=== PATIENT | female | born 1960 | race African-American/Black ===

== ENCOUNTER 2019-08-25 09:33 | Inpatient (IN) | payer MEDICARE, MEDICAID ==
[~2019-08-25] VITALS: Ht 152.4 cm; Wt 77.1 kg
[~2019-08-25 09:33] MED LIST: ATOR20TA; CIPR-263; CLOP75TA4 PO; DOCU250C14 PO; ERGO400T3; FERR240T6 PO; METH2.5T; METH8TAB5; OMEP20CA4; ONDA4TAB5 PO; POTA-79 PO; SUCR1TAB; TRAM50TA94 PO; [UNRECOGNIZED DRUG - CODE]
[2019-08-25] MEDS ORDERED: ONDANSETRON HCL 4MG/2ML INJ IV STA (09:57)
[2019-08-25] MEDS ORDERED: MORPHINE SULFATE 4 MG/ML CPJ (NOT FOR IM USE) IV STA (09:57)
[2019-08-25] MEDS ORDERED: SODIUM CHLORIDE 0.9% 1,000 ML IV ONE (09:57)
[2019-08-25 10:29] LABS: BASOPHILS % 1.7 % (0.0-2.0); EOSINOPHILS % 4.6 % (0.0-5.0); HEMATOCRIT. 40.9 % (36.0-48.0); HEMOGLOBIN. 13.6 g/dL (12.0-16.0); LYMPHOCYTES % 39.2 % (20.0-50.0); MEAN CORPUSCULAR VOLUME 90.3 fL (81.0-99.0); MEAN PLATELET VOLUME 8.8 fl (7.4-10.4); MONOCYTES % 11.4 % (2.0-8.0); NEUTROPHILS % 43.1 % (40.0-76.0); PLATELET 217 x1000/uL (130-400); RED BLOOD CELL COUNT 4.54 mill/uL (4.2-5.4); RED CELL DISTRIBUTION WIDTH 14.2 % (11.6-14.6)
[2019-08-25 10:36] LABS: CHLORIDE 107 mEq/L (98-107)
[2019-08-25] MEDS ORDERED: ONDANSETRON HCL 4MG TABLET ONE (13:09)
[2019-08-25] MEDS ORDERED: ONDANSETRON HCL 4MG/2ML INJ IV ONE ×2 (13:15→14:15)
[2019-08-25 15:29] VITALS: BP 136/82
[2019-08-25] MEDS ORDERED: INFLUENZA VIRUS VACCINE(AFLURIA) 0.5ML SYR IM ONE (16:00)
[2019-08-25 20:00] VITALS: BP 142/77
[2019-08-25] MEDS: MORPHINE SULFATE 2 MG/ML CPJ (NOT FOR IM USE) IV PRN (22:25)
[2019-08-25] MEDS: ONDANSETRON HCL 4MG/2ML INJ IV PRN (22:32)
[2019-08-26] VITALS: BP 139/86
[2019-08-26] MEDS: MORPHINE SULFATE 2 MG/ML CPJ (NOT FOR IM USE) IV PRN ×2 (02:29→06:47)
[2019-08-26 04:00] VITALS: BP 157/83
[2019-08-26] MEDS ORDERED: CLONIDINE 0.1MG TABLET PO PRN (06:15)
[2019-08-26] MEDS: SUCRALFATE 1G TABLET PO SCH ×4 (06:47→20:14)
[2019-08-26] MEDS: OMEPRAZOLE 20MG CAPSULE EXTENDED RELEASE PO SCH ×2 (06:47→20:14)
[2019-08-26] MEDS: ONDANSETRON HCL 4MG/2ML INJ IV PRN ×2 (06:47→14:15)
[2019-08-26 08:00] VITALS: BP 168/91
[2019-08-26] MEDS ORDERED: DEXT 5%/0.45% NACL 1000ML 1,000 ML IV SCH (09:00)
[2019-08-26] MEDS: AMLODIPINE 10MG TABLET PO SCH (09:31)
[2019-08-26] MEDS: PREDNISONE 10MG TABLET PO SCH (09:31)
[2019-08-26] MEDS: DOCUSATE SODIUM 100MG CAPSULE PO SCH ×2 (09:31→17:00)
[2019-08-26] MEDS: HYDROMORPHONE HCL/PF 2MG/ML CPJ IV PRN ×5 (09:32→23:58)
[2019-08-26 12:00] VITALS: BP 149/91
[2019-08-26 16:00] VITALS: BP 109/81
[2019-08-26] MEDS: ENOXAPARIN 40MG/0.4ML SYR SUBCUT SCH (18:11)
[2019-08-26 20:00] VITALS: BP 142/87
[2019-08-27] VITALS (9 sets, daily range): BP systolic 106–142; BP diastolic 67–89
[2019-08-27] MEDS: HYDROMORPHONE HCL/PF 2MG/ML CPJ IV PRN ×4 (04:25→20:10)
[2019-08-27] MEDS: SUCRALFATE 1G TABLET PO SCH ×4 (06:34→20:15)
[2019-08-27] MEDS: OMEPRAZOLE 20MG CAPSULE EXTENDED RELEASE PO SCH (06:34)
[2019-08-27] MEDS: DOCUSATE SODIUM 100MG CAPSULE PO SCH (10:09)
[2019-08-27] MEDS: PREDNISONE 10MG TABLET PO SCH (10:09)
[2019-08-27] MEDS: AMLODIPINE 10MG TABLET PO SCH (10:11)
[2019-08-27] MEDS ORDERED: LACTULOSE 20G/30ML UDC PO PRN (11:30)
[2019-08-27] MEDS ORDERED: LACTULOSE 20G/30ML UDC PO NR (11:45)
[2019-08-27] MEDS: DOCUSATE SODIUM 250MG CAPSULE PO SCH (12:46)
[2019-08-27] MEDS: ONDANSETRON HCL 4MG/2ML INJ IV PRN (13:01)
[2019-08-27] MEDS: HYDROCODONE/ACETAMINOPHEN 10/325MG TABLET PO PRN ×2 (16:12→22:38)
[2019-08-27] MEDS: ENOXAPARIN 40MG/0.4ML SYR SUBCUT SCH (18:20)
[2019-08-28] VITALS: BP 122/79
[2019-08-28] MEDS: HYDROMORPHONE HCL/PF 2MG/ML CPJ IV PRN ×6 (00:23→22:25)
[2019-08-28] MEDS: HYDROCODONE/ACETAMINOPHEN 10/325MG TABLET PO PRN ×2 (02:45→07:47)
[2019-08-28 04:00] VITALS: BP 112/69
[2019-08-28] MEDS: SUCRALFATE 1G TABLET PO SCH ×4 (06:24→21:31)
[2019-08-28 08:00] VITALS: BP 127/73
[2019-08-28] MEDS: AMLODIPINE 10MG TABLET PO SCH (08:42)
[2019-08-28] MEDS: PREDNISONE 10MG TABLET PO SCH (08:42)
[2019-08-28] MEDS: DOCUSATE SODIUM 250MG CAPSULE PO SCH (08:42)
[2019-08-28] MEDS: ONDANSETRON HCL 4MG/2ML INJ IV PRN ×4 (09:51→22:38)
[2019-08-28 12:00] VITALS: BP 100/71
[2019-08-28] MEDS: HYDROCODONE/ACETAMINOPHEN 10/325MG TABLET PO SCH ×3 (14:37→20:21)
[2019-08-28 16:00] VITALS: BP 97/71
[2019-08-28] MEDS ORDERED: IBUPROFEN 600MG TABLET PO PRN (17:00)
[2019-08-28 17:33] LABS: BASOPHILS % 0.6 % (0.0-2.0); EOSINOPHILS % 1.7 % (0.0-5.0); HEMATOCRIT. 38.2 % (36.0-48.0); HEMOGLOBIN. 12.4 g/dL (12.0-16.0); LYMPHOCYTES % 8.9 % (20.0-50.0); MEAN CORPUSCULAR HEMOGLOBIN 29.6 pg (28.0-32.0); MEAN PLATELET VOLUME 9.3 fl (7.4-10.4); MONOCYTES % 13.1 % (2.0-8.0); NEUTROPHILS % 75.7 % (40.0-76.0); PLATELET 192 x1000/uL (130-400); RED CELL DISTRIBUTION WIDTH 13.6 % (11.6-14.6)
[2019-08-28 17:48] LABS: CHLORIDE 105 mEq/L (98-107)
[2019-08-28] MEDS: ENOXAPARIN 40MG/0.4ML SYR SUBCUT SCH (17:51)
[2019-08-28 20:00] VITALS: BP 112/72
[2019-08-28] MEDS: OMEPRAZOLE 20MG CAPSULE EXTENDED RELEASE PO SCH (20:21)
[2019-08-29] VITALS (7 sets, daily range): BP systolic 112–135; BP diastolic 72–84
[2019-08-29] MEDS: HYDROCODONE/ACETAMINOPHEN 10/325MG TABLET PO SCH ×5 (00:27→17:01)
[2019-08-29] MEDS: ONDANSETRON HCL 4MG/2ML INJ IV PRN (02:33)
[2019-08-29] MEDS: HYDROMORPHONE HCL/PF 2MG/ML CPJ IV PRN ×2 (02:33→10:48)
[2019-08-29] MEDS: OMEPRAZOLE 20MG CAPSULE EXTENDED RELEASE PO SCH (06:33)
[2019-08-29] MEDS: SUCRALFATE 1G TABLET PO SCH ×3 (06:33→17:00)
[2019-08-29] MEDS: DOCUSATE SODIUM 250MG CAPSULE PO SCH (08:42)
[2019-08-29] MEDS: PREDNISONE 10MG TABLET PO SCH (08:42)
[2019-08-29] MEDS: AMLODIPINE 10MG TABLET PO SCH (08:43)
[2019-08-29] MEDS: ENOXAPARIN 40MG/0.4ML SYR SUBCUT SCH (17:00)
== END 2019-08-29 17:26 | DRG 563 ==
LOC: ER 09:33 → 6EST 13:04 → ENRESERV 14:09
PROVIDERS: ADMIT Internal Medicine; ATTEND Internal Medicine
DX: S82.142A Displaced bicondylar fracture of left tibia, initial encounter for closed fracture (principal); E44.0 Moderate protein-calorie malnutrition; M25.00 Hemarthrosis, unspecified joint; J98.11 Atelectasis; M85.80 Other specified disorders of bone density and structure, unspecified site; I10 Essential (primary) hypertension; M32.9 Systemic lupus erythematosus, unspecified; K44.9 Diaphragmatic hernia without obstruction or gangrene; M16.12 Unilateral primary osteoarthritis, left hip; K29.70 Gastritis, unspecified, without bleeding; M81.0 Age-related osteoporosis without current pathological fracture; W18.39XA Other fall on same level, initial encounter; Z68.33 Body mass index [BMI] 33.0-33.9, adult; Z87.11 Personal history of peptic ulcer disease; Z88.0 Allergy status to penicillin; Z79.899 Other long term (current) drug therapy; Z89.412 Acquired absence of left great toe; Y93.89 Activity, other specified; Y92.89 Other specified places as the place of occurrence of the external cause; Y99.8 Other external cause status
CPT/HCPCS: 36415; 71045; 72170; 73552; 73590; 73700; 80048; 83036; 90686; 93005; 96374; 97162; 97530; 97760; 99285; J1170; J1650; J2270; J2405; J7030; J7512; Q0162

== ENCOUNTER 2019-08-29 17:30 | Inpatient (IN) | payer MEDICARE, MEDICAID ==
[~2019-08-29] VITALS: Ht 152.4 cm; Wt 77.1 kg
[2019-08-29] MEDS ORDERED: CLONIDINE 0.1MG TABLET PO PRN (18:30)
[2019-08-29 18:40] VITALS: BP 102/69
[2019-08-29 18:54] VITALS: BP 102/69
[2019-08-29 20:00] VITALS: BP 92/53
[2019-08-29] MEDS: HYDROCODONE/ACETAMINOPHEN 10/325MG TABLET PO SCH ×2 (20:00→23:51)
[2019-08-29] MEDS: HYDROMORPHONE HCL/PF 2MG/ML CPJ IV PRN (21:47)
[2019-08-29] MEDS: OMEPRAZOLE 20MG CAPSULE EXTENDED RELEASE PO SCH (21:48)
[2019-08-29] MEDS: LACTULOSE 20G/30ML UDC PO PRN (21:48)
[2019-08-29] MEDS: SUCRALFATE 1G TABLET PO SCH (21:48)
[2019-08-30] MEDS: HYDROCODONE/ACETAMINOPHEN 10/325MG TABLET PO SCH ×6 (04:00→23:47)
[2019-08-30] MEDS: ONDANSETRON HCL 4MG/2ML INJ IV PRN ×5 (05:47→23:50)
[2019-08-30] MEDS: HYDROMORPHONE HCL/PF 2MG/ML CPJ IV PRN (05:48)
[2019-08-30] MEDS: SUCRALFATE 1G TABLET PO SCH ×4 (05:48→20:38)
[2019-08-30 07:30] LABS: BASOPHILS % 0.9 % (0.0-2.0); EOSINOPHILS % 2.1 % (0.0-5.0); HEMATOCRIT. 36.4 % (36.0-48.0); HEMOGLOBIN. 12.1 g/dL (12.0-16.0); LYMPHOCYTES % 22.9 % (20.0-50.0); MEAN CORPUSCULAR HEMOGLOBIN 29.8 pg (28.0-32.0); MEAN CORPUSCULAR VOLUME 89.3 fL (81.0-99.0); MEAN PLATELET VOLUME 9.6 fl (7.4-10.4); MONOCYTES % 14.1 % (2.0-8.0); PLATELET 226 x1000/uL (130-400); RED BLOOD CELL COUNT 4.07 mill/uL (4.2-5.4); RED CELL DISTRIBUTION WIDTH 13.2 % (11.6-14.6)
[2019-08-30 07:49] LABS: CHLORIDE 105 mEq/L (98-107)
[2019-08-30 08:12] VITALS: BP 134/84
[2019-08-30] MEDS: OMEPRAZOLE 20MG CAPSULE EXTENDED RELEASE PO SCH ×2 (08:19→20:40)
[2019-08-30] MEDS: DOCUSATE SODIUM 250MG CAPSULE PO SCH (08:20)
[2019-08-30] MEDS: ENOXAPARIN 40MG/0.4ML SYR SUBCUT SCH (08:20)
[2019-08-30] MEDS: PREDNISONE 10MG TABLET PO SCH (08:21)
[2019-08-30] MEDS: AMLODIPINE 10MG TABLET PO SCH ×2 (08:21→08:22)
[2019-08-30] MEDS ORDERED: BISACODYL 10MG SUPP PR ONE (09:30)
[2019-08-30] MEDS ORDERED: BISACODYL 10MG SUPP PR PRN (09:30)
[2019-08-30] MEDS: LIDOCAINE 5% PATCH TOP SCH (11:50)
[2019-08-30] MEDS: LACTULOSE 20G/30ML UDC PO SCH ×3 (13:04→20:40)
[2019-08-30] MEDS: OXYCODONE HCL 5MG TABLET PO SCH ×2 (13:05→17:38)
[2019-08-30 19:58] LABS: CLARITY URINE CLEAR (CLEAR); COLOR URINE YELLOW (YELLOW); KETONES URINE NEGATIVE (NEGATIVE); LEUKOCYTE ESTERASE URINE NEGATIVE (NEGATIVE); NITRITE URINE NEGATIVE (NEGATIVE); OCCULT BLOOD URINE NEGATIVE (NEGATIVE); PROTEIN URINE 1+ (NEGATIVE); SPECIFIC GRAVITY URINE 1.022 (1.005-1.030)
[2019-08-30 20:00] VITALS: BP 123/89
[2019-08-31] MEDS: HYDROCODONE/ACETAMINOPHEN 10/325MG TABLET PO SCH ×5 (04:00→21:08)
[2019-08-31] MEDS: ONDANSETRON HCL 4MG/2ML INJ IV PRN ×3 (04:02→14:44)
[2019-08-31] MEDS: HYDROMORPHONE HCL/PF 2MG/ML CPJ IV PRN (04:04)
[2019-08-31] MEDS: SUCRALFATE 1G TABLET PO SCH ×4 (05:46→21:08)
[2019-08-31 06:55] LABS: BASOPHILS % 0.8 % (0.0-2.0); EOSINOPHILS % 1.9 % (0.0-5.0); HEMATOCRIT. 36.1 % (36.0-48.0); HEMOGLOBIN. 12.3 g/dL (12.0-16.0); LYMPHOCYTES % 18.4 % (20.0-50.0); MEAN CORPUSCULAR HEMOGLOBIN 30.5 pg (28.0-32.0); MEAN CORPUSCULAR VOLUME 89.5 fL (81.0-99.0); MEAN PLATELET VOLUME 9.4 fl (7.4-10.4); MONOCYTES % 9.9 % (2.0-8.0); PLATELET 240 x1000/uL (130-400); RED BLOOD CELL COUNT 4.03 mill/uL (4.2-5.4); RED CELL DISTRIBUTION WIDTH 13.1 % (11.6-14.6)
[2019-08-31 07:18] LABS: CHLORIDE 106 mEq/L (98-107)
[2019-08-31 07:24] LABS: PHOSPHORUS 3.3 mg/dL (2.5-4.9)
[2019-08-31 07:26] LABS: TOTAL IRON BINDING CAPACITY 203 ug/dL (250-450)
[2019-08-31 07:56] VITALS: BP 123/72
[2019-08-31] MEDS: OMEPRAZOLE 20MG CAPSULE EXTENDED RELEASE PO SCH ×2 (08:52→21:08)
[2019-08-31] MEDS: PREDNISONE 10MG TABLET PO SCH (08:53)
[2019-08-31] MEDS: DOCUSATE SODIUM 250MG CAPSULE PO SCH (08:53)
[2019-08-31] MEDS: ENOXAPARIN 40MG/0.4ML SYR SUBCUT SCH (08:54)
[2019-08-31] MEDS: AMLODIPINE 10MG TABLET PO SCH (08:54)
[2019-08-31] MEDS: LIDOCAINE 5% PATCH TOP SCH (08:54)
[2019-08-31 09:38] LABS: FOLIC ACID (FOLATE) SERUM 11.2 ng/mL (>5.38)
[2019-08-31] MEDS: OXYCODONE HCL 5MG TABLET PO SCH ×3 (09:49→17:00)
[2019-08-31] MEDS ORDERED: POTASSIUM CHLORIDE 20MEQ TABLET SR PO NR (11:15)
[2019-08-31] MEDS: CYANOCOBALAMIN 1000MCG/ML VIAL IM SCH (12:01)
[2019-08-31 20:00] VITALS: BP 110/74
[2019-09-01] MEDS: HYDROCODONE/ACETAMINOPHEN 10/325MG TABLET PO SCH ×7 (01:06→23:30)
[2019-09-01] MEDS: HYDROMORPHONE HCL/PF 2MG/ML CPJ IV PRN ×2 (05:15→23:31)
[2019-09-01] MEDS: ONDANSETRON HCL 4MG/2ML INJ IV PRN ×2 (05:20→09:21)
[2019-09-01] MEDS: SUCRALFATE 1G TABLET PO SCH ×4 (05:35→20:31)
[2019-09-01 07:51] LABS: BASOPHILS % 0.9 % (0.0-2.0); HEMATOCRIT. 35.9 % (36.0-48.0); HEMOGLOBIN. 11.8 g/dL (12.0-16.0); LYMPHOCYTES % 24.2 % (20.0-50.0); MEAN CORPUSCULAR HEMOGLOBIN 29.6 pg (28.0-32.0); MEAN CORPUSCULAR VOLUME 89.8 fL (81.0-99.0); MEAN PLATELET VOLUME 9.3 fl (7.4-10.4); MONOCYTES % 10.9 % (2.0-8.0); PLATELET 226 x1000/uL (130-400); RED BLOOD CELL COUNT 3.99 mill/uL (4.2-5.4); RED CELL DISTRIBUTION WIDTH 13.3 % (11.6-14.6)
[2019-09-01 08:07] VITALS: BP 116/69
[2019-09-01 08:07] LABS: CHLORIDE 103 mEq/L (98-107)
[2019-09-01] MEDS: OXYCODONE HCL 5MG TABLET PO SCH ×2 (08:44→12:55)
[2019-09-01] MEDS: AMLODIPINE 10MG TABLET PO SCH (08:44)
[2019-09-01] MEDS: OMEPRAZOLE 20MG CAPSULE EXTENDED RELEASE PO SCH ×2 (08:44→20:31)
[2019-09-01] MEDS: DOCUSATE SODIUM 250MG CAPSULE PO SCH (08:45)
[2019-09-01] MEDS: PREDNISONE 10MG TABLET PO SCH (08:45)
[2019-09-01] MEDS: ENOXAPARIN 40MG/0.4ML SYR SUBCUT SCH (08:45)
[2019-09-01] MEDS: CYANOCOBALAMIN 1000MCG/ML VIAL IM SCH (08:45)
[2019-09-01] MEDS: LIDOCAINE 5% PATCH TOP SCH (08:46)
[2019-09-01] MEDS: LACTULOSE 20G/30ML UDC PO SCH ×3 (11:12→17:00)
[2019-09-01] MEDS ORDERED: OXYCODONE HCL 5MG TABLET PO SCH (17:00)
[2019-09-01 20:00] VITALS: BP 109/76
[2019-09-01] MEDS: LACTULOSE 20G/30ML UDC PO PRN (20:33)
[2019-09-01] MEDS: IRON SUCROSE COMPLEX 100 MG in SODIUM CHLORIDE 0.9% 100 ML IV SCH (21:59)
[2019-09-02] MEDS: HYDROCODONE/ACETAMINOPHEN 10/325MG TABLET PO SCH ×6 (03:34→23:51)
[2019-09-02] MEDS: SUCRALFATE 1G TABLET PO SCH ×4 (06:17→21:13)
[2019-09-02 08:00] VITALS: BP 114/69
[2019-09-02] MEDS: ENOXAPARIN 40MG/0.4ML SYR SUBCUT SCH (08:28)
[2019-09-02] MEDS: DOCUSATE SODIUM 250MG CAPSULE PO SCH (08:28)
[2019-09-02] MEDS: PREDNISONE 10MG TABLET PO SCH (08:28)
[2019-09-02] MEDS: OMEPRAZOLE 20MG CAPSULE EXTENDED RELEASE PO SCH ×2 (08:28→21:13)
[2019-09-02] MEDS: CYANOCOBALAMIN 1000MCG/ML VIAL IM SCH (08:28)
[2019-09-02] MEDS: ONDANSETRON HCL 4MG/2ML INJ IV PRN ×3 (08:37→19:30)
[2019-09-02] MEDS: HYDROMORPHONE HCL/PF 2MG/ML CPJ IV PRN (08:38)
[2019-09-02] MEDS: POLYETHYLENE GLYCOL 3350 (17GM) 1 DOSE PACK PO SCH (08:51)
[2019-09-02] MEDS: AMLODIPINE 10MG TABLET PO SCH (08:52)
[2019-09-02] MEDS: LIDOCAINE 5% PATCH TOP SCH (08:52)
[2019-09-02] MEDS: OXYCODONE HCL 5MG TABLET PO SCH ×2 (12:06→16:32)
[2019-09-02 20:00] VITALS: BP 106/73
[2019-09-02] MEDS: LACTULOSE 20G/30ML UDC PO PRN (21:13)
[2019-09-02] MEDS: OXYCODONE HCL 10MG TABLET SR 12HR PO SCH (22:51)
[2019-09-02] MEDS: IRON SUCROSE COMPLEX 100 MG in SODIUM CHLORIDE 0.9% 100 ML IV SCH (23:38)
[2019-09-02] MEDS: ZOLPIDEM TARTRATE 5MG TABLET PO PRN (23:51)
[2019-09-03] MEDS: HYDROCODONE/ACETAMINOPHEN 10/325MG TABLET PO SCH ×5 (04:00→20:00)
[2019-09-03] MEDS: SUCRALFATE 1G TABLET PO SCH ×4 (05:47→21:00)
[2019-09-03] MEDS: OXYCODONE HCL 10MG TABLET SR 12HR PO SCH ×3 (06:00→22:00)
[2019-09-03] MEDS: ONDANSETRON HCL 4MG/2ML INJ IV PRN ×3 (06:01→20:12)
[2019-09-03] MEDS: HYDROMORPHONE HCL/PF 2MG/ML CPJ IV PRN (06:42)
[2019-09-03 08:00] VITALS: BP 144/90
[2019-09-03] MEDS: POLYETHYLENE GLYCOL 3350 (17GM) 1 DOSE PACK PO SCH (08:12)
[2019-09-03] MEDS: DOCUSATE SODIUM 250MG CAPSULE PO SCH (08:12)
[2019-09-03] MEDS: OMEPRAZOLE 20MG CAPSULE EXTENDED RELEASE PO SCH ×2 (08:12→21:00)
[2019-09-03] MEDS: PREDNISONE 10MG TABLET PO SCH (08:12)
[2019-09-03] MEDS: ENOXAPARIN 40MG/0.4ML SYR SUBCUT SCH (08:12)
[2019-09-03] MEDS: AMLODIPINE 10MG TABLET PO SCH (08:20)
[2019-09-03] MEDS: LIDOCAINE 5% PATCH TOP SCH (08:20)
[2019-09-03 20:00] VITALS: BP 121/75
[2019-09-03] MEDS: IRON SUCROSE COMPLEX 100 MG in SODIUM CHLORIDE 0.9% 100 ML IV SCH (21:50)
[2019-09-04] MEDS: ONDANSETRON HCL 4MG/2ML INJ IV PRN (01:25)
[2019-09-04] MEDS: HYDROMORPHONE HCL/PF 2MG/ML CPJ IV PRN ×2 (01:26→09:18)
[2019-09-04] MEDS: SUCRALFATE 1G TABLET PO SCH ×4 (05:34→20:47)
[2019-09-04] MEDS: OXYCODONE HCL 10MG TABLET SR 12HR PO SCH (05:35)
[2019-09-04 07:31] LABS: EOSINOPHILS % 3.1 % (0.0-5.0); HEMATOCRIT. 37.2 % (36.0-48.0); HEMOGLOBIN. 12.5 g/dL (12.0-16.0); LYMPHOCYTES % 28.9 % (20.0-50.0); MEAN CORPUSCULAR HEMOGLOBIN 29.9 pg (28.0-32.0); MEAN CORPUSCULAR VOLUME 89.4 fL (81.0-99.0); MEAN PLATELET VOLUME 9.1 fl (7.4-10.4); MONOCYTES % 13.4 % (2.0-8.0); NEUTROPHILS % 53.6 % (40.0-76.0); PLATELET 273 x1000/uL (130-400); RED BLOOD CELL COUNT 4.16 mill/uL (4.2-5.4); RED CELL DISTRIBUTION WIDTH 13.8 % (11.6-14.6)
[2019-09-04 08:00] VITALS: BP 115/78
[2019-09-04 08:20] LABS: CHLORIDE 105 mEq/L (98-107)
[2019-09-04] MEDS: LIDOCAINE 5% PATCH TOP SCH (09:00)
[2019-09-04] MEDS: AMLODIPINE 10MG TABLET PO SCH (09:00)
[2019-09-04] MEDS: PREDNISONE 10MG TABLET PO SCH (09:05)
[2019-09-04] MEDS: OMEPRAZOLE 20MG CAPSULE EXTENDED RELEASE PO SCH ×2 (09:05→20:47)
[2019-09-04] MEDS: DOCUSATE SODIUM 250MG CAPSULE PO SCH (09:05)
[2019-09-04] MEDS: POLYETHYLENE GLYCOL 3350 (17GM) 1 DOSE PACK PO SCH (09:06)
[2019-09-04] MEDS: ENOXAPARIN 40MG/0.4ML SYR SUBCUT SCH (09:06)
[2019-09-04] MEDS ORDERED: POTASSIUM CHLORIDE 20MEQ TABLET SR PO NR (10:30)
[2019-09-04 20:00] VITALS: BP 136/83
[2019-09-04] MEDS: HYDROMORPHONE HCL 2MG TABLET PO PRN (20:49)
[2019-09-04] MEDS: IRON SUCROSE COMPLEX 100 MG in SODIUM CHLORIDE 0.9% 100 ML IV SCH (22:47)
[2019-09-05] MEDS: ZOLPIDEM TARTRATE 5MG TABLET PO PRN (01:59)
[2019-09-05] MEDS: SUCRALFATE 1G TABLET PO SCH ×4 (06:28→20:19)
[2019-09-05 08:00] VITALS: BP 117/78
[2019-09-05] MEDS: AMLODIPINE 10MG TABLET PO SCH (09:00)
[2019-09-05] MEDS: HYDROMORPHONE HCL/PF 2MG/ML CPJ IV PRN (09:01)
[2019-09-05] MEDS: OMEPRAZOLE 20MG CAPSULE EXTENDED RELEASE PO SCH ×2 (09:02→20:20)
[2019-09-05] MEDS: ENOXAPARIN 30MG/0.3ML SYR SUBCUT SCH ×2 (09:02→20:19)
[2019-09-05] MEDS: POLYETHYLENE GLYCOL 3350 (17GM) 1 DOSE PACK PO SCH (09:02)
[2019-09-05] MEDS: LIDOCAINE 5% PATCH TOP SCH (09:03)
[2019-09-05] MEDS: DOCUSATE SODIUM 250MG CAPSULE PO SCH (09:03)
[2019-09-05] MEDS: PREDNISONE 10MG TABLET PO SCH (09:03)
[2019-09-05 09:53] LABS: CHLORIDE 106 mEq/L (98-107)
[2019-09-05] MEDS: HYDROMORPHONE HCL 2MG TABLET PO PRN (12:29)
[2019-09-05] MEDS: IBUPROFEN 600MG TABLET PO PRN ×2 (15:00→21:04)
[2019-09-05 20:00] VITALS: BP 124/78
[2019-09-05] MEDS: IRON SUCROSE COMPLEX 100 MG in SODIUM CHLORIDE 0.9% 100 ML IV SCH (20:20)
[2019-09-06] MEDS: HYDROMORPHONE HCL/PF 2MG/ML CPJ IV PRN ×2 (01:04→06:45)
[2019-09-06] MEDS: HYDROMORPHONE HCL 2MG TABLET PO PRN (02:46)
[2019-09-06 04:07] LABS: 25-HYDROXY VITAMIN D3 15 ng/mL (.)
[2019-09-06] MEDS: SUCRALFATE 1G TABLET PO SCH ×4 (05:39→22:13)
[2019-09-06 08:00] VITALS: BP 119/74
[2019-09-06] MEDS: LIDOCAINE 5% PATCH TOP SCH (08:34)
[2019-09-06] MEDS: DOCUSATE SODIUM 250MG CAPSULE PO SCH (08:35)
[2019-09-06] MEDS: ENOXAPARIN 30MG/0.3ML SYR SUBCUT SCH ×2 (08:35→22:14)
[2019-09-06] MEDS: POLYETHYLENE GLYCOL 3350 (17GM) 1 DOSE PACK PO SCH (08:35)
[2019-09-06] MEDS: PREDNISONE 10MG TABLET PO SCH (08:36)
[2019-09-06] MEDS: IBUPROFEN 600MG TABLET PO PRN ×2 (08:36→17:53)
[2019-09-06] MEDS: OMEPRAZOLE 20MG CAPSULE EXTENDED RELEASE PO SCH ×2 (08:36→22:14)
[2019-09-06] MEDS: AMLODIPINE 10MG TABLET PO SCH (08:41)
[2019-09-06 20:00] VITALS: BP 113/80
[2019-09-07] MEDS: ZOLPIDEM TARTRATE 5MG TABLET PO PRN (01:09)
[2019-09-07] MEDS: HYDROMORPHONE HCL/PF 2MG/ML CPJ IV PRN ×2 (01:43→05:23)
[2019-09-07] MEDS: SUCRALFATE 1G TABLET PO SCH ×4 (06:43→20:36)
[2019-09-07] MEDS: HYDROMORPHONE HCL 2MG TABLET PO PRN ×2 (07:55→17:04)
[2019-09-07 08:27] VITALS: BP 127/79
[2019-09-07] MEDS: LIDOCAINE 5% PATCH TOP SCH (09:00)
[2019-09-07] MEDS: AMLODIPINE 10MG TABLET PO SCH (09:00)
[2019-09-07] MEDS: PREDNISONE 10MG TABLET PO SCH (09:56)
[2019-09-07] MEDS: OMEPRAZOLE 20MG CAPSULE EXTENDED RELEASE PO SCH (09:56)
[2019-09-07] MEDS: IBUPROFEN 600MG TABLET PO PRN (09:58)
[2019-09-07] MEDS: POLYETHYLENE GLYCOL 3350 (17GM) 1 DOSE PACK PO SCH (09:58)
[2019-09-07] MEDS: ENOXAPARIN 30MG/0.3ML SYR SUBCUT SCH ×2 (09:58→20:36)
[2019-09-07] MEDS: DOCUSATE SODIUM 250MG CAPSULE PO SCH (09:58)
[2019-09-07] MEDS: FAMOTIDINE 20MG TABLET PO SCH (17:01)
[2019-09-07 20:00] VITALS: BP 112/79
[2019-09-07] MEDS: HYDROCODONE/ACETAMINOPHEN 10/325MG TABLET PO PRN (23:38)
[2019-09-08] MEDS: HYDROMORPHONE HCL 2MG TABLET PO PRN ×2 (02:42→23:11)
[2019-09-08] MEDS: SUCRALFATE 1G TABLET PO SCH ×4 (05:38→20:47)
[2019-09-08 06:57] LABS: CHLORIDE 108 mEq/L (98-107)
[2019-09-08 07:01] LABS: BASOPHILS % 0.2 % (0.0-2.0); EOSINOPHILS % 3.3 % (0.0-5.0); HEMOGLOBIN. 13.2 g/dL (12.0-16.0); LYMPHOCYTES % 32.8 % (20.0-50.0); MEAN CORPUSCULAR HEMOGLOBIN 30.5 pg (28.0-32.0); MEAN CORPUSCULAR VOLUME 89.7 fL (81.0-99.0); MEAN PLATELET VOLUME 8.6 fl (7.4-10.4); MONOCYTES % 14.5 % (2.0-8.0); NEUTROPHILS % 49.2 % (40.0-76.0); PLATELET 270 x1000/uL (130-400); RED BLOOD CELL COUNT 4.34 mill/uL (4.2-5.4); RED CELL DISTRIBUTION WIDTH 13.7 % (11.6-14.6)
[2019-09-08 08:00] VITALS: BP 134/80
[2019-09-08] MEDS: ENOXAPARIN 30MG/0.3ML SYR SUBCUT SCH ×2 (08:52→20:47)
[2019-09-08] MEDS: HYDROCODONE/ACETAMINOPHEN 10/325MG TABLET PO PRN (08:54)
[2019-09-08] MEDS: FAMOTIDINE 20MG TABLET PO SCH ×2 (08:54→16:34)
[2019-09-08] MEDS: PREDNISONE 10MG TABLET PO SCH (08:54)
[2019-09-08] MEDS: DOCUSATE SODIUM 250MG CAPSULE PO SCH (08:54)
[2019-09-08] MEDS: AMLODIPINE 10MG TABLET PO SCH (08:55)
[2019-09-08] MEDS: POLYETHYLENE GLYCOL 3350 (17GM) 1 DOSE PACK PO SCH (09:00)
[2019-09-08] MEDS: LIDOCAINE 5% PATCH TOP SCH (09:00)
[2019-09-08] MEDS: ONDANSETRON 4MG ODT PO PRN (11:14)
[2019-09-08] MEDS ORDERED: LACTULOSE 20G/30ML UDC PO NR (13:25)
[2019-09-08] MEDS: LACTULOSE 20G/30ML UDC PO SCH ×2 (16:33→20:47)
[2019-09-08 20:00] VITALS: BP 119/87
[2019-09-09] MEDS: ZOLPIDEM TARTRATE 5MG TABLET PO PRN (01:12)
[2019-09-09] MEDS: SUCRALFATE 1G TABLET PO SCH ×4 (05:39→20:33)
[2019-09-09] MEDS: HYDROCODONE/ACETAMINOPHEN 10/325MG TABLET PO PRN ×2 (05:40→14:48)
[2019-09-09 07:53] VITALS: BP 112/78
[2019-09-09] MEDS: PREDNISONE 10MG TABLET PO SCH (08:38)
[2019-09-09] MEDS: DOCUSATE SODIUM 250MG CAPSULE PO SCH (08:38)
[2019-09-09] MEDS: FAMOTIDINE 20MG TABLET PO SCH ×2 (08:38→16:25)
[2019-09-09] MEDS: ENOXAPARIN 30MG/0.3ML SYR SUBCUT SCH ×2 (08:39→20:33)
[2019-09-09] MEDS: AMLODIPINE 10MG TABLET PO SCH (08:39)
[2019-09-09] MEDS: LIDOCAINE 5% PATCH TOP SCH (08:40)
[2019-09-09] MEDS: POLYETHYLENE GLYCOL 3350 (17GM) 1 DOSE PACK PO SCH (08:40)
[2019-09-09] MEDS: IBUPROFEN 600MG TABLET PO PRN (14:49)
[2019-09-09 20:00] VITALS: BP 105/68
[2019-09-10] MEDS: HYDROMORPHONE HCL 2MG TABLET PO PRN ×2 (01:17→15:54)
[2019-09-10] MEDS: HYDROCODONE/ACETAMINOPHEN 10/325MG TABLET PO PRN ×2 (02:56→22:01)
[2019-09-10] MEDS: SUCRALFATE 1G TABLET PO SCH ×4 (05:31→20:46)
[2019-09-10 07:59] VITALS: BP 109/71
[2019-09-10] MEDS: FAMOTIDINE 20MG TABLET PO SCH ×2 (08:52→16:29)
[2019-09-10] MEDS: PREDNISONE 10MG TABLET PO SCH (08:52)
[2019-09-10] MEDS: LIDOCAINE 5% PATCH TOP SCH (08:53)
[2019-09-10] MEDS: DOCUSATE SODIUM 250MG CAPSULE PO SCH (08:56)
[2019-09-10] MEDS: ENOXAPARIN 30MG/0.3ML SYR SUBCUT SCH (08:56)
[2019-09-10] MEDS: AMLODIPINE 10MG TABLET PO SCH (08:56)
[2019-09-10] MEDS: POLYETHYLENE GLYCOL 3350 (17GM) 1 DOSE PACK PO SCH (08:57)
[2019-09-10] MEDS ORDERED: HYDR2TAB4 MT (14:29)
[2019-09-10] MEDS ORDERED: DOCU250C14 MT (14:29)
[2019-09-10] MEDS ORDERED: HYDR-4009 MT (14:29)
[2019-09-10 20:00] VITALS: BP 123/72
[2019-09-11] MEDS: ZOLPIDEM TARTRATE 5MG TABLET PO PRN (00:12)
[2019-09-11] MEDS: SUCRALFATE 1G TABLET PO SCH ×2 (05:53→11:21)
[2019-09-11] MEDS: HYDROMORPHONE HCL 2MG TABLET PO PRN (07:50)
[2019-09-11 07:57] VITALS: BP 123/77
[2019-09-11] MEDS: PREDNISONE 10MG TABLET PO SCH (08:11)
[2019-09-11] MEDS: LIDOCAINE 5% PATCH TOP SCH (08:13)
[2019-09-11] MEDS: AMLODIPINE 10MG TABLET PO SCH (08:14)
[2019-09-11] MEDS: DOCUSATE SODIUM 250MG CAPSULE PO SCH (08:14)
[2019-09-11] MEDS: POLYETHYLENE GLYCOL 3350 (17GM) 1 DOSE PACK PO SCH (08:14)
[2019-09-11] MEDS: FAMOTIDINE 20MG TABLET PO SCH (08:19)
[2019-09-11] MEDS: ONDANSETRON 4MG ODT PO PRN (08:19)
[2019-09-11 08:48] VITALS: BP 114/62
[2019-09-11] MEDS ORDERED: ENOXAPARIN 40MG/0.4ML SYR SUBCUT SCH (09:00)
== END 2019-09-11 16:15 | disposition home health service (06) | DRG 563 ==
PROVIDERS: ADMIT Physical Medicine & Rehabilitation Spinal Cord Injury Medicine; ATTEND Internal Medicine
DX: S82.142A Displaced bicondylar fracture of left tibia, initial encounter for closed fracture (principal); E44.0 Moderate protein-calorie malnutrition; J98.11 Atelectasis; M25.062 Hemarthrosis, left knee; W18.30XA Fall on same level, unspecified, initial encounter; M85.80 Other specified disorders of bone density and structure, unspecified site; K29.70 Gastritis, unspecified, without bleeding; K25.9 Gastric ulcer, unspecified as acute or chronic, without hemorrhage or perforation; M32.9 Systemic lupus erythematosus, unspecified; K44.9 Diaphragmatic hernia without obstruction or gangrene; M16.12 Unilateral primary osteoarthritis, left hip; E87.6 Hypokalemia; R53.81 Other malaise; E61.1 Iron deficiency; E11.65 Type 2 diabetes mellitus with hyperglycemia; I10 Essential (primary) hypertension; Z89.412 Acquired absence of left great toe; Z89.422 Acquired absence of other left toe(s); Z79.52 Long term (current) use of systemic steroids; Z87.11 Personal history of peptic ulcer disease; Z88.0 Allergy status to penicillin; Z79.899 Other long term (current) drug therapy; Z83.2 Family history of diseases of the blood and blood-forming organs and certain disorders involving the immune mechanism; Z68.33 Body mass index [BMI] 33.0-33.9, adult
CPT/HCPCS: 36415; 73560; 80048; 81003; 82306; 82607; 82728; 82746; 83540; 83550; 83735; 84100; 84134; 84443; 92523; 93923; 93970; 97110; 97112; 97116; 97162; 97167; 97530; 97535; C1893; J1170; J1650; J2405; J3420; J7040; J7050; J7512; Q0162